=== PATIENT | female | born 1975 | race Caucasian/White ===

== ENCOUNTER → 2017-10-11 14:36 | Outpatient (CLI) | payer MEDICAID, SELFPAY ==
[2017-10-11 18:19] LABS: Basophils # 0.1 K/mm3 (0-0.2); Basophils % 0.8 % (0.1-2.0); Eosinophils # 0.3 K/mm3 (0.0-0.4); Eosinophils % 3.9 % (0.1-12.0); Hematocrit 42.3 % (37.0-47.0); Lymphocytes # 1.7 K/mm3 (0.7-4.5); Lymphocytes % 23.1 K/mm3 (10-50); Mean Corpuscular HGB Conc 30.8 g/dL (31.8-35.4); Mean Corpuscular Hemoglobin 26.9 pg (27.0-31.2); Mean Corpuscular Volume 87.3 fl (81-99); Mean Platelet Volume 7.8 fl (7.4-10.4); Monocytes # 0.5 K/mm3 (0.1-1.0); Monocytes % 7.2 % (1.7-9.3); Neutrophils # 4.8 K/mm3 (1.8-7.8); Platelet Count 415 K/mm3 (142-424); Red Blood Count 4.84 M/mm3 (4.20-5.40); Red Cell Distribution Width 14.6 % (11.5-17.5); White Blood Count 7.4 K/mm3 (4.8-10.8)
[2017-10-11 18:45] LABS: Alanine Aminotransferase 31 U/L (12-78); Albumin Level 3.8 gm/dL (3.4-5.0); Albumin/Globulin Ratio 1.1 (1.1-1.8); Alkaline Phosphatase 73 U/L (46-116); Anion Gap 14.7 mEq/L (5-15); Aspartate Amino Transferase 19 U/L (15-37); Bilirubin,Total 0.4 mg/dL (0.2-1.0); Blood Urea Nitrogen 8 mg/dL (7-18); Carbon Dioxide 25 mmol/L (21.0-32.0); Chloride 103 mmol/L (98-107); Chol/HDL Ratio 6.7 (1-3.5); Cholesterol 234 mg/dL (140-200); Creatinine,Serum 0.82 mg/dL (0.55-1.02); Estimated Glomerular Filt Rate 76 ml/min (>60); Free T4 (Free Thyroxine) 0.47 ng/dl (0.76-1.46); GFR (African American) 92 ML/MIN (>60); Globulin 3.6 gm/dl (1.3-3.2); Glucose 326 mg/dL (74-106); HDL Cholesterol 35 mg/dL (29-89); LDL Cholesterol 169 mg/dL (0-130); Potassium 4.7 mmoL/L (3.5-5.1); Sodium 138 mmol/L (136-145); Thyroid Stimulating Hormone 57.86 uIU/ml (0.358-3.740); Total Protein,Serum 7.4 gm/dL (6.4-8.2); Triglycerides 150 mg/dL (30-200); VLDL Cholesterol 30 mg/dL (0-40)
[2017-10-11 18:59] LABS: Hemoglobin A1C 10.6 % (0.0-7.0)
== END ==
PROVIDERS: Visit Provider Nurse Practitioner Family
DX: R53.83 Other fatigue (principal); E11.9 Type 2 diabetes mellitus without complications; Z79.899 Other long term (current) drug therapy
CPT/HCPCS: 80053; 80061; 82652; 83036; 84439; 84443; 85025

== ENCOUNTER → 2017-11-25 13:49 | Outpatient (CLI) | payer MEDICAID, SELFPAY ==
[2017-11-25 15:25] LABS: HCG,Quantitative 0 mIU/mL
== END ==
PROVIDERS: Visit Provider Obstetrics & Gynecology
DX: O03.9 Complete or unspecified spontaneous abortion without complication (principal); Z30.40 Encounter for surveillance of contraceptives, unspecified
CPT/HCPCS: 36415; 84702

== ENCOUNTER → 2017-11-30 07:42 | Outpatient (CLI) | payer MEDICAID, SELFPAY ==
[2017-12-01 09:19] LABS: Creatinine, Urine 110.6 mg/dL (Not Estab.); Microalbumin, Urine 9.2 ug/mL (Not Estab.)
== END ==
PROVIDERS: Nurse Practitioner Family; Visit Provider Obstetrics & Gynecology
DX: E11.9 Type 2 diabetes mellitus without complications (principal)
CPT/HCPCS: 82043; 82570

== ENCOUNTER → 2018-01-12 11:29 | Outpatient (REF) | payer MEDICAID, SELFPAY ==
[2018-01-12 13:35] LABS: Basophils # 0.1 K/mm3 (0-0.2); Basophils % 0.6 % (0.1-2.0); Eosinophils # 0.4 K/mm3 (0.0-0.4); Eosinophils % 3.8 % (0.1-12.0); Hematocrit 40.8 % (37.0-47.0); Hemoglobin 12.2 g/dL (12.2-16.2); Lymphocytes # 2.1 K/mm3 (0.7-4.5); Lymphocytes % 18.1 K/mm3 (10-50); Mean Corpuscular Hemoglobin 25.7 pg (27.0-31.2); Mean Corpuscular Volume 85.7 fl (81-99); Mean Platelet Volume 7.8 fl (7.4-10.4); Monocytes # 0.6 K/mm3 (0.1-1.0); Monocytes % 5.2 % (1.7-9.3); Neutrophils # 8.3 K/mm3 (1.8-7.8); Neutrophils % 72.3 % (37.0-80.0); Platelet Count 476 K/mm3 (142-424); Red Blood Count 4.75 M/mm3 (4.20-5.40); Red Cell Distribution Width 14.9 % (11.5-17.5); White Blood Count 11.5 K/mm3 (4.8-10.8)
[2018-01-12 14:04] LABS: Alanine Aminotransferase 37 U/L (12-78); Alkaline Phosphatase 70 U/L (46-116); Anion Gap 17.4 mEq/L (5-15); Aspartate Amino Transferase 27 U/L (15-37); Bilirubin,Total 0.4 mg/dL (0.2-1.0); Blood Urea Nitrogen 11 mg/dL (7-18); Calcium 9.3 mg/dL (8.5-10.1); Carbon Dioxide 24 mmol/L (21.0-32.0); Chloride 104 mmol/L (98-107); Chol/HDL Ratio 5.4 (1-3.5); Cholesterol 156 mg/dL (140-200); Estimated Glomerular Filt Rate 68 ml/min (>60); Free T4 (Free Thyroxine) 1.15 ng/dl (0.76-1.46); GFR (African American) 82 ML/MIN (>60); Globulin 4.1 gm/dl (1.3-3.2); Glucose 224 mg/dL (74-106); HDL Cholesterol 29 mg/dL (29-89); LDL Cholesterol 104 mg/dL (0-130); Potassium 5.4 mmoL/L (3.5-5.1); Sodium 140 mmol/L (136-145); Thyroid Stimulating Hormone 7.06 uIU/ml (0.358-3.740); Total Protein,Serum 8.1 gm/dL (6.4-8.2); Triglycerides 115 mg/dL (30-200); VLDL Cholesterol 23 mg/dL (0-40)
[2018-01-13 18:00] LABS: Vitamin D 25 Hydroxy 72.1 ng/mL (30.0-100.0)
== END ==
LOC: LAB 11:29
PROVIDERS: Visit Provider Nurse Practitioner Family
DX: E11.9 Type 2 diabetes mellitus without complications (principal)
CPT/HCPCS: 80053; 80061; 82652; 84439; 84443; 85025

== ENCOUNTER → 2018-01-19 10:12 | Outpatient (CLI) | payer MEDICAID, SELFPAY ==
[2018-01-19 11:13] LABS: Alanine Aminotransferase 26 U/L (12-78); Albumin Level 3.6 gm/dL (3.4-5.0); Alkaline Phosphatase 60 U/L (46-116); Anion Gap 13.6 mEq/L (5-15); Aspartate Amino Transferase 12 U/L (15-37); Bilirubin,Total 0.3 mg/dL (0.2-1.0); Blood Urea Nitrogen 9 mg/dL (7-18); Calcium 8.9 mg/dL (8.5-10.1); Carbon Dioxide 24 mmol/L (21.0-32.0); Chloride 105 mmol/L (98-107); Estimated Glomerular Filt Rate 78 ml/min (>60); GFR (African American) 94 ML/MIN (>60); Globulin 3.6 gm/dl (1.3-3.2); Glucose 176 mg/dL (74-106); Potassium 4.6 mmoL/L (3.5-5.1); Sodium 138 mmol/L (136-145); Total Protein,Serum 7.2 gm/dL (6.4-8.2)
== END ==
PROVIDERS: Visit Provider Nurse Practitioner Family
DX: E87.5 Hyperkalemia (principal)
CPT/HCPCS: 36415; 80053

== ENCOUNTER → 2018-07-31 11:31 | Outpatient (CLI) | payer MEDICAID, SELFPAY ==
[2018-07-31 12:22] LABS: Hemoglobin A1C 7.1 % (0.0-7.0)
[2018-07-31 13:18] LABS: Alanine Aminotransferase 24 U/L (12-78); Albumin Level 3.9 gm/dL (3.4-5.0); Albumin/Globulin Ratio 1.1 (1.1-1.8); Alkaline Phosphatase 71 U/L (46-116); Anion Gap 14.8 mEq/L (5-15); Aspartate Amino Transferase 18 U/L (15-37); Bilirubin,Total 0.5 mg/dL (0.2-1.0); Blood Urea Nitrogen 12 mg/dL (7-18); Calcium 10.3 mg/dL (8.5-10.1); Carbon Dioxide 29 mmol/L (21.0-32.0); Chloride 99 mmol/L (98-107); Chol/HDL Ratio 6.3 (1-3.5); Cholesterol 176 mg/dL (140-200); Creatinine,Serum 0.92 mg/dL (0.55-1.02); Estimated Glomerular Filt Rate 66 ml/min (>60); GFR (African American) 80 ML/MIN (>60); Globulin 3.6 gm/dl (1.3-3.2); Glucose 205 mg/dL (74-106); HDL Cholesterol 28 mg/dL (29-89); LDL Cholesterol 109 mg/dL (0-130); Potassium 4.8 mmoL/L (3.5-5.1); Sodium 138 mmol/L (136-145); Thyroid Stimulating Hormone 11.87 uIU/ml (0.358-3.740); Total Protein,Serum 7.5 gm/dL (6.4-8.2); Triglycerides 194 mg/dL (30-200); VLDL Cholesterol 39 mg/dL (0-40)
[2018-08-03 13:36] LABS: Vitamin D 25 Hydroxy 69.1 ng/mL (30.0-100.0)
== END ==
PROVIDERS: Visit Provider Nurse Practitioner Family
DX: Z00.00 Encounter for general adult medical examination without abnormal findings (principal); E11.610 Type 2 diabetes mellitus with diabetic neuropathic arthropathy
CPT/HCPCS: 36415; 80053; 80061; 82652; 83036; 84443

== ENCOUNTER → 2018-08-22 10:11 | Outpatient (CLI) | payer MEDICAID, SELFPAY ==
--- NOTE | 2018-08-22 10:20 | US_ITS ---
US transvaginal Ordering Physician: Asif Black MD Patient Age: 43 years: Female HISTORY: ITS.REASON: US T/V- Heavy Bleeding Heavy vaginal bleeding TECHNIQUE: Transvaginal pelvic ultrasound COMPARISON :Previous pelvic ultrasound November 2016. FINDINGS Uterus is enlarged with a large posterior fundal fibroid. Uterus measures 10.2 cm in length as 5.9 cm AP x 6.95 cm wide. . Endometrial stripe measures up to 8 mm AP. This fibroid at posterior fundus measures up to 4.3 cm in length x 2.5 cm AP x 3.5 cm wide. . The thyroid extends to the endometrium and there anterior displacement of the endometrial stripe due to the posterior fibroid This fibroid appears has enlarged and has become more evident since previous 2017 ultrasound exam Bilateral oval area enlargement bilateral ovarian cyst.. Right ovary 4.9 cm x 3.6 x 4.4 cm. Dominant right ovarian cyst measuring up to 4.4 x 3.3 cm. Left ovary 5.2 cm x 2.9 cm x 4.2 cm Dominant cyst at the left ovary measured 3.4 cm length x 2.8 cm. X 2.5 cm transverse Cm Both ovarian cyst again demonstrated a fairly smooth thin-walled with no discrete mural mass or remarkable septations. However these warrant further evaluation or close, given this size No fluid in cul-de-sac IMPRESSION: ...... 1. Enlarged uterus with posterior fundal uterine fibroid .... Interval enlargement of posterior fundal fibroid since 2016. ... This fibroid now measuring over 4 cm maximally, extends to & displaces the endometrial stripe at superior uterus... ... Generous Endometrium measuring up to 8 mm thickness. 2. Bilateral ovarian enlargement. Bilateral ovarian cyst. Right ovary measures 4.9 cm maximally & contains ovarian cyst measuring up to 4.4 cm. Left ovary measures 5.2 cm length and contains a cyst measuring up to 3.4 cm. No fluid in cul-de-sac
== END ==
PROVIDERS: PCP Internal Medicine Adolescent Medicine; Visit Provider Nurse Practitioner Obstetrics & Gynecology
DX: N92.0 Excessive and frequent menstruation with regular cycle (principal)
CPT/HCPCS: 76830

== ENCOUNTER → 2018-10-13 09:54 | Outpatient (CLI) | payer MEDICAID, SELFPAY ==
[2018-10-13 10:26] LABS: Basophils % 0.7 % (0.1-2.0); Eosinophils # 0.3 K/mm3 (0.0-0.4); Hematocrit 34.7 % (37.0-47.0); Hemoglobin 11.2 g/dL (12.2-16.2); Lymphocytes # 1.8 K/mm3 (0.7-4.5); Lymphocytes % 26.5 % (10-50); Mean Corpuscular HGB Conc 32.4 g/dL (31.8-35.4); Mean Corpuscular Hemoglobin 27.5 pg (27.0-31.2); Mean Corpuscular Volume 85.1 fl (81-99); Mean Platelet Volume 7.4 fl (7.4-10.4); Monocytes # 0.5 K/mm3 (0.1-1.0); Monocytes % 6.7 % (1.7-9.3); Neutrophils # 4.2 K/mm3 (1.8-7.8); Neutrophils % 61.1 % (37.0-80.0); Platelet Count 361 K/mm3 (142-424); Red Blood Count 4.08 M/mm3 (4.20-5.40); Red Cell Distribution Width 15.7 % (11.5-17.5); White Blood Count 6.8 K/mm3 (4.8-10.8)
[2018-10-13 11:27] LABS: Alanine Aminotransferase 27 U/L (12-78); Albumin Level 3.8 gm/dL (3.4-5.0); Albumin/Globulin Ratio 1.2 (1.1-1.8); Alkaline Phosphatase 59 U/L (46-116); Anion Gap 16.4 mEq/L (5-15); Aspartate Amino Transferase 16 U/L (15-37); Bilirubin,Total 0.4 mg/dL (0.2-1.0); Blood Urea Nitrogen 10 mg/dL (7-18); Calcium 9.3 mg/dL (8.5-10.1); Carbon Dioxide 25 mmol/L (21.0-32.0); Chloride 104 mmol/L (98-107); Creatinine,Serum 0.77 mg/dL (0.55-1.02); Estimated Glomerular Filt Rate 81 ml/min (>60); Free Thyroxine Index 5.2 ug/dL (5.93-13.13); GFR (African American) 98 ML/MIN (>60); Globulin 3.3 gm/dl (1.3-3.2); Glucose 107 mg/dL (74-106); Potassium 4.4 mmoL/L (3.5-5.1); Sodium 141 mmol/L (136-145); Thyroid Stimulating Hormone 0.05 uIU/ml (0.358-3.740); Total Protein,Serum 7.1 gm/dL (6.4-8.2); Triiodothryronine (T3) Uptake 37 % (31-39)
[2018-10-13 12:17] LABS: HCG Qualitative, Serum Negative (Negative)
== END ==
PROVIDERS: Nurse Practitioner Obstetrics & Gynecology; Visit Provider Internal Medicine Adolescent Medicine
DX: Z01.818 Encounter for other preprocedural examination (principal); E11.610 Type 2 diabetes mellitus with diabetic neuropathic arthropathy; Z79.84 Long term (current) use of oral hypoglycemic drugs; E03.9 Hypothyroidism, unspecified
CPT/HCPCS: 36415; 80053; 83036; 84436; 84443; 84479; 84703; 85025

== ENCOUNTER 2018-10-16 07:03 | Observation (INO) ==
--- NOTE | 2018-10-16 10:20 | Operative Note ---
Date of procedure: 10/16/18 Pre-op Diagnosis:: Menorrhagia, fibroid uterus Post-op Diagnosis:: Menorrhagia, fibroid uterus Procedure performed:: Laparoscopically assisted vaginal hysterectomy and bilateral salpingectomy Surgeon:: Asif Black MD Mechanical Design Drafter(s):: Dr. Holcomb WASTE DISPOSAL ATTENDANT:: Andrew Weiss Anesthesia: GETA Estimated blood loss (mL): 200 Clinical Note:: She is a 43-year-old 5 para 2 aborta 3 lady who complains of severe heavy periods. She had a fibroid that was seen on ultrasound a couple of years ago and her most recent ultrasound showed that the fibroid had grown from 2-4 cm. The fibroid was impinging on the endometrial cavity. As result of that she was offered laparoscopically assisted vaginal hysterectomy and bilateral salpingectomy. Operative findings:: She had an anteverted bulky uterus with a 4 cm fibroid posteriorly in the uterus. The ovaries and tubes appeared normal. The appendix was visualized and appeared normal. The upper abdomen appeared normal. The rest of the pelvis appeared normal. Operative note:: She was taken to the operating room where general anesthesia was found be adequate. She was prepped and draped in normal sterile fashion in the semilithotomy position. A weighted speculum was placed in the vagina and the anterior lip of the cervix was grasped with a tenaculum. A Angely uterine manipulator was then placed within the cervical os. The lumen was insufflated I then changed gloves. I injected 10 cc of 0.5% ropivacaine around the umbilicus and made a small incision within the umbilicus. I inserted a Veress needle into the abdominal cavity. The abdominal cavity was then insufflated with carbon dioxide gas to a pressure of 20 mmHg. I then inserted an 11 mm trocar under direct vision. I injected through and through the pubic hairline, made a small incision here and inserted a 5 mm trocar under direct vision. I identified the inferior epigastric arteries on the left side, went lateral to these and injected through and through. I then made a small incision and inserted an 11 mm trocar under direct vision. A similar 11 mm trocar was placed on the right side. The left round ligament was then grasped and cut through with harmonic scalpel. This was followed by opening up the peritoneum anteriorly to the midline. I then grasped the tube on the left side and cut through this. This is followed by cutting through the left utero-ovarian ligament. I used Harmonic scalpel on the coagulation mode. I then took down the posterior aspect of the broad ligament to the level of the uterosacral ligament. I then skeletonized the uterine arteries on the left side and placed hemoclips on these. Using the harmonic scalpel on coagulation mode adjacent to the cervix I then took down these uterine arteries. I then further freed up the bladder anteriorly and laterally on the left side. I then turned my attention to the right side where I grasped the right round ligament. I then cut through the right round ligament. The right tube was then cut followed by the right utero-ovarian ligament which was cut with harmonic scalpel on coagulation mode. I then took down the anterior peritoneum to the midline joining up with the other side. I further dissected the bladder off. The posterior aspect of the right broad ligament was then taken down with harmonic scalpel. I skeletonized the uterine arteries on the right side. I applied hemoclips to the uterine arteries and staying adjacent to the cervix on the right side I took down the uterine arteries with harmonic scalpel on coagulation mode. I further freed up the bladder. We then assured hemostasis. I then grasped the distal end of the right tube and using harmonic scalpel I cut along the mesosalpinx. The tube was removed through the 11 mm trocar site. This was only performed on the patient's left side. After once again assuring hemostasis we then turned our attention to the vaginal portion of the surgery. The patient was placed in the lithotomy position and a weighted speculum was placed in the vagina. The anterior and posterior lip of the cervix were grasped with Brunson tenacula. I then injected 20 cc of 1% Xylocaine with epinephrine circumferentially about the cervix. I then circumscribed the cervix. I opened up in the posterior cul-de-sac using White scissors. I then placed a long weighted speculum through the defect. The left uterosacral ligament was then clamped cut and suture-ligated and tagged. This was followed by the left cardinal ligament which was clamped cut and suture-ligated. I then clamped cut and suture-ligated and tagged the right uterosacral ligament. This was followed by the right cardinal ligament which was clamped cut and suture-ligated. I then grasped the anterior vaginal mucosa and using both sharp and blunt dissection dissected off the bladder. I then opened sharply into the anterior cul-de-sac. A La retractor was placed through this defect. Both left and right uterine arteries were then clamped cut and suture-ligated. This freed up the uterus and it was removed through the vagina. Then inserted a short weighted speculum. Posterior cuff was then closed using running 2-0 Vicryl suture in a locked fashion. I then lysed a Quiroga suture using 0 PDS. I passed it through the vagina and the peritoneum and then through the left perirectal fascia. I then plicated across the posterior peritoneum and through the right perirectal fascia. This was then passed through the peritoneum and vagina and left to be tied at the end. I then grasped the anterior peritoneum and using 2-0 PDS suture in a pursestring fashion I closed the peritoneum. The vaginal cuff was then closed using running 0 Vicryl suture in a locked fashion from left to right from anterior to posterior. A Guerin cath was then placed in the bladder. Clear urine was seen to flow. I then changed gloves and once again insufflated the abdominal cavity with carbon dioxide gas. Hemostasis was once again assured and I rinsed the pelvis. I then placed a half a piece of Surgicel on each side of the pelvis. I injected approximately 20 cc of 0.5% ropivacaine into the pelvis. I let the gas out of the abdomen and once again hemostasis was assured. The secondary trochars were then removed under direct vision and the sites were hemostatic. The primary trocar and camera were removed together. No bowel was seen to follow. The 11 mm trocar sites were closed deeply with [id number] 2-0 Vicryl suture followed by running subcuticular 4-0 Monocryl suture. 5 mm trocar site was closed with subcuticular 4-0 Monocryl suture. Sterile dressings were applied. The patient tolerated procedure well and was taken to the recovery room in excellent condition. All sponge instrument and needle counts were correct. The estimated blood loss was approximately 200 cc. Condition: stable Disposition: PACU Specimens:: Uterus and fallopian tubes Complications:: None
--- NOTE | 2018-10-16 10:32 | Progress Note ---
[facility] Anesthesia Checklist - Patient Identification Patient Identification: Arm Band - Structural Data Admitted From: Home Planned Operative Procedure/s: lavh bilateral salpingectomy Consent for Planned Operative Procedure(s) Verified: Yes Verified Documents: Surgical Consent, History and Physical - NPO Status Verified Time NPO: 00:00 - Additional verifications Anesthesia Reactions: No - Airway Assessment C-Spine Mobility Assessed: Yes (mp2) TMJ Mobility Assessed: Yes Dentition: Good Dentition - Neurological Assessment Level of Consciousness: Awake, Alert - Anesthesia Plan Anesthesia Risk discussed: Yes Anesthesia Plan: Verified ASA Class: III Anesthesia Type: General [facility] History I have reviewed the patient's past medical history: Yes Medical History: Reports:: Cancer (cervical ca x2), Diabetes Mellitus Type 2, G astroesophageal Reflux Disease(GERD), Hyperlipidemia, Hypertension Denies:: Diabetes Mellitus Type 1, Internal Pacemaker, MRSA, Seizures *Have you ever received a pneumonia vaccine?: No *Have you received a flu vaccine this season?: Yes Other Medical History: Reports: Other. Denies: Blood Transfusion Reaction Other Surgeries: Yes: Cancer Surgery, Other. No: Pacemaker Amputation: No Fractures: Yes - *Social History Educational Level: Attended High School Smoking Status: Current every day smoker Tobacco Type: cigarettes # Packs/Day (cigarettes): 1 Alcohol Intake: never Substance Use Type: denies use *Occupational Status:: unemployed Housing: apartment Household Members: children *Travel in the last 8 weeks: None - Psychiatric History Expresses thoughts of harming self/others: None Suicide Plan Description: No Plan Family Hx:: No significant family history, Heart Attack, Diabetes
--- NOTE | 2018-10-16 10:33 | Progress Note ---
[facility] Anesthesia Record Part I Intake, IV Amount: 1,500 Estimated blood loss (mL): 200 Urine output (mL): 150 Blood Pressure: 103/63 SaO2: 95 Pulse Rate: 90 Respiratory Rate: 16 Temperature: 97.8 F Patient is:: Drowsy, Stable Stable to PACU at:: 10:25
--- NOTE | 2018-10-16 10:33 | Progress Note ---
[facility] Anesthesia Record Part II Discharge Time: 10:55 Destination: 2nd floor PACU nurse assessment reviewed?: Yes Patient Condition:: Good Anesthesia Complications:: None Swallowing reflex intact?: Yes Cyanosis?: No
[2018-10-17 06:36] LABS: Basophils % 0.1 % (0.1-2.0); Eosinophils # 0.1 K/mm3 (0.0-0.4); Eosinophils % 0.8 % (0.1-12.0); Hematocrit 28.9 % (37.0-47.0); Hemoglobin 9.2 g/dL (12.2-16.2); Lymphocytes # 1.8 K/mm3 (0.7-4.5); Lymphocytes % 15.7 % (10-50); Mean Corpuscular HGB Conc 31.8 g/dL (31.8-35.4); Mean Corpuscular Hemoglobin 27.6 pg (27.0-31.2); Mean Corpuscular Volume 86.8 fl (81-99); Mean Platelet Volume 7.8 fl (7.4-10.4); Monocytes # 0.9 K/mm3 (0.1-1.0); Monocytes % 7.4 % (1.7-9.3); Neutrophils # 8.8 K/mm3 (1.8-7.8); Platelet Count 324 K/mm3 (142-424); Red Blood Count 3.33 M/mm3 (4.20-5.40); Red Cell Distribution Width 15.8 % (11.5-17.5); White Blood Count 11.5 K/mm3 (4.8-10.8)
[2018-10-17 06:42] LABS: Anion Gap 11.1 mEq/L (5-15); Calcium 8.2 mg/dL (8.5-10.1); Potassium 4.1 mmoL/L (3.5-5.1)
--- NOTE | 2018-10-17 07:33 | Pharmacy Consult Notes ---
[facility] Pharmacy VTE Monitoring - Patient Demographics Admission date: 10/16/18 Report Date: 10/17/18 Time: 07:32 Allergies/Adverse Reactions: Patient Allergies acetaminophen [From NYQUIL] Allergy (Mild, Verified 09/20/18 15:05) dextromethorphan [From NYQUIL] Allergy (Mild, Verified 09/20/18 15:05) doxylamine [From NYQUIL] Allergy (Mild, Verified 09/20/18 15:05) pseudoephedrine [From NYQUIL] Allergy (Mild, Verified 09/20/18 15:05) alcohol [ALCOHOL] Allergy (Unknown, Verified 09/20/18 15:05) Penicillins [PENICILLINS] Allergy (Unknown, Verified 09/20/18 15:05) Height: 1.56 m Weight: 83.007 kg - VTE Risk Labs: VTE Related Lab Results Hgb 9.2 g/dL (12.2-16.2) L 10/17/18 06:14 Hct 28.9 % (37.0-47.0) L 10/17/18 06:14 Plt Count 324 K/mm3 (142-424) 10/17/18 06:14 BUN 9 mg/dL (7-18) 10/17/18 06:14 Creatinine 0.84 mg/dL (0.55-1.02) 10/17/18 06:14 Estimated Creat Clear 111 mL/min (50-200) 10/17/18 06:14 Clinical Trial Participant: No - Prophylaxis VTE Prophylaxis Ordered?: Yes Types of VTE Prophylaxis: IPCS Knee High, Pharmacological Pharmacologic Type: Enoxaparin
--- NOTE | 2018-10-17 08:15 | Discharge Summary ---
General - General Admission date:: 10/16/18 Discharge date: 10/17/18 HPI HPI: She is a 43-year-old lady who complains of heavy periods. An ultrasound showed a 4 cm fibroid. It had grown from 2 cm. As result of that she was offered laparoscopically assisted vaginal hysterectomy and bilateral salpingectomy. Hospital Course Hospital Course: On October 16, 2018 she underwent a laparoscopically assisted vaginal hysterectomy and bilateral salpingectomy. She has done well postoperatively and has remained afebrile throughout her hospitalization. Her catheter has been removed and she is eating and drinking and ambulating. She is voiding well. He has not yet had a bowel movement. She denies chest pain, shortness of breath or calf tenderness. We will plan to discharge her home today to follow-up with me in 2 weeks time. She will continue with her home medications. She was given the usual instructions with respect to limiting her activity, driving and sexual activity. She will change her dressings on a daily basis. She was given a prescription for Percocet 5/325, 30 tablets as well as a prescription for MiraLAX. Objective Vital signs: Temp Pulse Resp BP Pulse Ox 98.3 F 69 16 108/63 L 99 10/17/18 04:00 10/17/18 04:00 10/17/18 04:00 10/17/18 04:00 10/17/18 00:17 no acute distress - *Routine HEENT Exam Head: Present: normocephalic - *Routine Respiratory Exam Absent: accessory muscle use - *Routine Cardiovascular Exam Present: RRR - *Routine Abdominal Exam Present: soft, normoactive bowel sounds Comments: Her incisions are clean and dry Results Labs on day of discharge: Labs from last 24 hours 10/17/18 10/17/18 10/16/18 06:14 06:14 13:12 WBC 11.5 H RBC 3.33 L Hgb 9.2 L Hct 28.9 L MCV 86.8 MCH 27.6 MCHC 31.8 RDW 15.8 Plt Count 324 MPV 7.8 Neut % (Auto) 76.0 Lymph % (Auto) 15.7 [place] % (Auto) 7.4 Eos % (Auto) 0.8 Baso % (Auto) 0.1 Neut # (Auto) 8.8 H Lymph # (Auto) 1.8 [place] # (Auto) 0.9 Eos # (Auto) 0.1 Baso # (Auto) 0.0 Sodium 139 Potassium 4.1 Chloride 104 Carbon Dioxide 28 Anion Gap 11.1 BUN 9 Creatinine 0.84 Estimated Creat Clear 111 Estimated GFR 73 Est GFR ( Amer) 89 Glucose 197 H POC Glucose 217 H Calcium 8.2 L Urine Color Urine Appearance Urine pH Ur Specific Dum[place] Urine Protein Urine Glucose (UA) Urine Ketones Urine Blood Urine Nitrate Urine Bilirubin Urine Urobilinogen Ur Leukocyte Esterase Urine WBC Ur Squamous Epith Cells Calcium Oxalate Crystal Urine Bacteria 10/16/18 10/16/18 10/16/18 10:34 07:29 07:11 WBC RBC Hgb Hct MCV MCH MCHC RDW Plt Count MPV Neut % (Auto) Lymph % (Auto) [place] % (Auto) Eos % (Auto) Baso % (Auto) Neut # (Auto) Lymph # (Auto) [place] # (Auto) Eos # (Auto) Baso # (Auto) Sodium Potassium Chloride Carbon Dioxide Anion Gap BUN Creatinine Estimated Creat Clear Estimated GFR Est GFR ( Amer) Glucose POC Glucose 157 H 113 H Calcium Urine Color Yellow Urine Appearance Sl cloudy Urine pH 5.5 Ur Specific Dumont >= 1.030 Urine Protein Negative Urine Glucose (UA) Negative Urine Ketones Negative Urine Blood Negative Urine Nitrate Negative Urine Bilirubin Negative Urine Urobilinogen 1.0 Ur Leukocyte Esterase Negative Urine WBC Occasional Ur Squamous Epith Cells 5-10 Calcium Oxalate Crystal 2+ Urine Bacteria 2+ A DS: Diagnosis - Discharge Diagnosis (1) Uterine fibroid Status: Acute (2) Menorrhagia Status: Acute (3) Abnormal uterine bleeding Status: Acute Discharge Plan - Patient Discharge Instructions ACTIVITY: No heavy lifting DIET: continue same diet - Follow up Plan Disposition: Home, Self-Senior Care Medications: Home Medications Medication Instructions Recorded Confirmed Type Atorvastatin Calcium [Lipitor 20mg 20 mg PO DAILY 10/13/18 10/13/18 History Tablet] Cholecalciferol (Vitamin D3) 5,000 unit PO DAILY 10/13/18 10/13/18 History [Vitamin D3] Ergocalciferol (Vitamin D2) 50,000 unit PO QWEEK 10/13/18 10/13/18 History [Vitamin D2] Gabapentin [Neurontin 600mg 600 mg PO TID 10/13/18 10/13/18 History tablet] Glimepiride 1 mg PO QAM 10/13/18 10/13/18 History Levothyroxine Sodium [Synthroid 125 mcg PO DAILY 10/13/18 10/13/18 History 125mcg (0.125mg) tablet] Metformin HCl [Glucophage] 1,000 mg PO BID 10/13/18 10/13/18 History Omeprazole [Omeprazole 20mg 20 mg PO DAILY 10/13/18 10/13/18 History Capsule] buPROPion HCl [Bupropion Xl] 150 mg PO QAM 10/13/18 10/13/18 History Nicotine [Nicotine Patch 21 mg TD DAILY #30 patch 10/17/18 Rx 21mg/24hrs] Oxycodone HCl/Acetaminophen 1 - 2 tab PO Q4-6H PRN #30 tab 10/17/18 Rx [Percocet 5/325mg tablet] Polyethylene Glycol 3350 [Miralax 17 gm PO DAILY 30 Days act 10/17/18 Rx Powder] Prescriptions/Medication Reconciliation: New Oxycodone HCl/Acetaminophen [Percocet 5/325mg tablet] 1 - 2 tab PO Q4-6H PRN #30 tab PRN Reason: Severe Pain Nicotine [Nicotine Patch 21mg/24hrs] 21 mg TD DAILY #30 patch Polyethylene Glycol 3350 [Miralax Powder] 17 gm PO DAILY 30 Days act Continue Glimepiride 1 mg PO QAM Gabapentin [Neurontin 600mg tablet] 600 mg PO TID Cholecalciferol (Vitamin D3) [Vitamin D3] 5,000 unit PO DAILY buPROPion HCl [Bupropion Xl] 150 mg PO QAM Atorvastatin Calcium [Lipitor 20mg Tablet] 20 mg PO DAILY Omeprazole [Omeprazole 20mg Capsule] 20 mg PO DAILY Metformin HCl [Glucophage] 1,000 mg PO BID Levothyroxine Sodium [Synthroid 125mcg (0.125mg) tablet] 125 mcg PO DAILY Ergocalciferol (Vitamin D2) [Vitamin D2] 50,000 unit PO QWEEK
== END 2018-10-17 09:00 | disposition home or self-care (01) ==
LOC: OR 07:03 → OB 07:03
PROVIDERS: ADMIT Nurse Practitioner Obstetrics & Gynecology; ATTEND Nurse Practitioner Obstetrics & Gynecology
CPT/HCPCS: 36415; 80048; 81001; 81025; 82962; 85025; 87086; 87088; 94640; 96372; 96374; G0378; J1956; J2405; S0077

== ENCOUNTER 2018-12-17 15:29 | Outpatient (CLI) | payer MEDICAID, SELFPAY ==
--- NOTE | 2018-12-17 15:37 | PC.NURSE ---
HERE FOR SUTURE REMOVAL FROM LEFT HAND
--- NOTE | 2018-12-17 15:50 | PC.NURSE ---
TOTAL OF 5 SUTURES REMOVED FROM LEFT HAND. AREA WELL APROXIMATED
== END 2018-12-17 15:50 | disposition home or self-care (01) ==
LOC: UTC.OUT 15:30
PROVIDERS: PCP Internal Medicine Adolescent Medicine; Visit Provider Nurse Practitioner
DX: S61.012D Laceration without foreign body of left thumb without damage to nail, subsequent encounter (principal)

== ENCOUNTER → 2018-12-25 15:56 | Outpatient (CLI) | payer MEDICAID, SELFPAY ==
[2018-12-27 17:45] LABS: HSV 2 IgG, Type Spec 8.61 index (0.00-0.90)
== END ==
PROVIDERS: Visit Provider Nurse Practitioner Obstetrics & Gynecology
DX: N94.9 Unspecified condition associated with female genital organs and menstrual cycle (principal)
CPT/HCPCS: 36415; 86695; 86790

== ENCOUNTER → 2019-03-13 15:27 | Outpatient (CLI) | payer MEDICAID, SELFPAY ==
--- NOTE | 2019-03-13 15:30 | MR_ITS ---
PROCEDURE: MR HEAD/BRAIN WO CON CLINICAL INDICATION: PRE-SYNCOPE Lightheaded, vomiting, sensitive to light, prior stroke COMPARISON: HDWO CT HEAD W/O CONTRAST from 11/07/2013 TECHNIQUE: Routine multiplanar multi echo sequences are performed without gadolinium enhancement. FINDINGS: No midline shift, mass effect, intracranial hemorrhage, hydrocephalus, or acute cortical infarction is evident. Cerebellopontine angles, cerebellum, and brainstem have an unremarkable appearance. The pituitary, optic chiasm, corpus callosum, and craniocervical junction have an unremarkable appearance. There is normal duke-white matter differentiation with no significant white matter changes apparent There is lobular mucosal thickening involving both maxillary sinuses right more extensive than left consistent with bilateral retention cyst measuring up to 3 cm in the right maxillary sinus. Mastoid sinuses are unremarkable. IMPRESSION: No acute intracranial findings. Bilateral maxillary sinus disease Dictated by: Brown Larry MD 03/15/2019 10:21 Electronically signed by Brown Larry MD in [place] 03/15/2019 10:21
== END ==
PROVIDERS: PCP Internal Medicine Adolescent Medicine; Visit Provider Internal Medicine Adolescent Medicine
DX: R55 Syncope and collapse (principal)
CPT/HCPCS: 70551

== ENCOUNTER → 2019-03-16 13:07 | Outpatient (CLI) | payer MEDICAID, SELFPAY ==
[2019-03-16 15:07] LABS: Ferritin 8 ng/mL (8-388)
[2019-03-17 07:32] LABS: Iron 66 ug/dL (27-159); UIBC 351 ug/dL (131-425)
[2019-03-18 04:20] LABS: Folate 10.6 ng/mL (>3.0); Iron Saturation 16 % (15-55); Vitamin B12 306 pg/mL (232-1245)
== END ==
PROVIDERS: Visit Provider Internal Medicine Adolescent Medicine
DX: D64.89 Other specified anemias (principal)
CPT/HCPCS: 36415; 82607; 82728; 82746; 83540; 83550

== ENCOUNTER 2022-08-29 13:35 | Emergency (ER) | payer SELFPAY ==
[2022-08-29 13:45] VITALS: BP 118/82; PULSE 95; RESP 20; TEMP 37.1; O2SAT 98; BMI 31.1
--- NOTE | 2022-08-29 14:21 | EXP.UTC ---
Discharge Plan Disposition Patient Disposition: Home, Self-Care Condition: Good Prescriptions Prescriptions: No Action bupropion HCl 150 mg tablet extended release 24 hr 150 mg PO QAM Qty: 90 2RF glimepiride 1 mg tablet 1 mg PO QAM Qty: 30 0RF Rx Instructions: administer with breakfast metformin 1,000 MG tablet 1,000 mg PO BID omeprazole 20 MG capsule,delayed release(DR/EC) 20 mg PO DAILY ergocalciferol (vitamin D2) 50,000 UNIT capsule 50,000 unit PO QWEEK nicotine 1 EACH patch 24 hour 21 mg TD DAILY Qty: 30 1RF atorvastatin 40 mg tablet 40 mg PO DAILY Label Comments: TAKE ONE TABLET BY MOUTH EVERY DAY levothyroxine 50 mcg tablet 50 mcg PO DAILY Label Comments: TAKE ONE TABLET BY MOUTH EVERY DAY Januvia 100 mg tablet 100 mg PO DAILY Label Comments: TAKE ONE TABLET BY MOUTH EVERY DAY Farxiga 5 mg tablet 5 mg PO DAILY Label Comments: TAKE ONE TABLET BY MOUTH EVERY DAY Referrals Follow up/Referrals: Eitan Demarco MD [Primary Care Provider] - See instructions Activity Restrictions/Add. Instructions Additional Instructions/Restrictions: *Monitor Temp, Over the counter Motrin or Tylenol as directed/as needed Tylenol every 4 hours and Motrin every 6 hours (as long as your family doctor has told you that you can take it) for fever or pain. and straight to ER if unable to lower temp less than 101.0 after medication given *Warm salt water gargles may help to soothe the throat *Throat Lozenges? *Warm fluids like tea with honey may help to soothe the throat? *Sleep elevated *Humidifier/Vaporizer Follow up IMMEDIATELY for new or worsening symptoms or no Noticeable improvement over the next 48-72 hours. 911 for difficulty breathing or swallowing You were tested for today for Upper Respiratory Panel with COVID19 your test result should be back in the next 24-48 hours, you may check your results on the [facility] My Health Portal Clinical Impressions Clinical Impression: Viral syndrome Instructions Patient Instructions: Nausea and Vomiting-Adult Discharge ED Provider: Gaby Sheets [facility] General Stated complaint: achy all over, vomiting Mode of Arrival: Ambulatory Source of Information: Patient Limitations: No Limitations Time Seen by Provider: 08/29/22 14:21 Description of Symptoms (Recalled from Triage Doc. by RN): aching all over, vomiting, and both ears HEENT Symptoms (Recalled from RN notes): Yes Resp Symptoms (Recalled from RN notes): No Skin Symptoms (Recalled from RN notes): No MS Symptoms (Recalled from RN notes): No Functional Status (Recalled from RN notes): n/a History of Present Illness Provider Complaint: Patient states that she has been feeling achy all over, nausea with vomiting at times and pain in her ears States that she over all does not feel well and worried she may have flu or COVID Related Data Home Medications Medication Instructions Recorded Confirmed ergocalciferol (vitamin D2) 1,250 50,000 unit PO QWEEK Supplement 10/13/18 08/29/22 mcg (50,000 unit) capsule metformin 1,000 mg tablet 1,000 mg PO BID Diabetes 10/13/18 08/29/22 omeprazole 20 mg capsule,delayed 20 mg PO DAILY GERD 10/13/18 08/29/22 release atorvastatin 40 mg tablet 40 mg PO DAILY . 08/29/22 08/29/22 dapagliflozin 5 mg tablet (Farxiga) 5 mg PO DAILY . 08/29/22 08/29/22 levothyroxine 50 mcg tablet 50 mcg PO DAILY . 08/29/22 08/29/22 sitagliptin phosphate 100 mg 100 mg PO DAILY . 08/29/22 08/29/22 tablet (Januvia) Previous Rx's Medication Instructions Recorded nicotine 21 mg/24 hr daily 21 mg TD DAILY #30 patches 10/17/18 transdermal patch bupropion HCl 150 mg 24 hr tablet, 150 mg PO QAM mood #90 tabs 01/05/19 extended release glimepiride 1 mg tablet 1 mg PO QAM Diabetes #30 tabs 03/08/19 Allergies Allergy/AdvReac Type Severity Reaction Status Date / Time acetaminophen [From DANIEL
[2022-08-29 14:55] LABS: UTC Strep Screen (Rapid) Negative (Negative)
[2022-08-29 14:56] LABS: UTC Influenza A Antigen Negative (Negative); UTC Influenza B Antigen Negative (Negative)
[2022-08-29 15:06] VITALS: BP 118/82; PULSE 95; RESP 20; TEMP 37.1; O2SAT 98
== END 2022-08-29 14:50 | disposition home or self-care (01) ==
PROVIDERS: Emergency Provider Nurse Practitioner; PCP Internal Medicine Adolescent Medicine
DX: B34.9 Viral infection, unspecified (principal); R11.10 Vomiting, unspecified; R52 Pain, unspecified
CPT/HCPCS: 87804; 87880; 99212; C9803; G0463; U0003; U0005